=== PATIENT | male | born 1960 ===

== ENCOUNTER → 2023-04-30 06:09 | Day surgery (SDC) | payer OTHER, SELFPAY | LOC: GI 06:09 | PROVIDERS: ATTENDING PHYSICIAN Specialist; FAMILY PHYSICIAN Family Medicine | DX: K57.30 Diverticulosis of large intestine without perforation or abscess without bleeding (principal); K52.89 Other specified noninfective gastroenteritis and colitis | CPT/HCPCS: 45380; 88305 ==